=== PATIENT | female | born 1935 | race Caucasian/White ===

== ENCOUNTER 2016-10-24 10:15 | Inpatient (IN) | payer MEDICARE, BC ==
[2016-10-24] MEDS: Lactated Ringers 1,000 ML IV SCH ×2 (09:22→15:40)
[~2016-10-24 10:15] MED LIST: Ketorolac 30 MG/ML SDV ONE; Lidocaine 2% 5 ML SDV ONE; Midazolam 1 MG/ML 2 ML SDV ONE; Neostigmine Methylsulfate 1 MG/ML 5 ML Syringe ONE; Ondansetron 4 MG/2 ML SDV ONE; Propofol 200 MG/20 ML SDV ONE; Rocuronium 10 MG/ML 10 ML Syringe ONE; ePHEDrine 50 MG/ML SDV ONE; fentaNYL 250 MCG/5 ML SDV ONE
--- NOTE | 2016-10-24 10:20 | PCM.PREANE ---
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 (s/p surgery to mandible t, tongue and neck with radiation) Respiratory: Reports: no symptoms Cardiovascular: Reports: no symptoms (abnormal EKG; s/p lexiscan with 68%ef), blood pressure problem (treated) GI: Reports: no symptoms (GERD) Other: Reports: thyroid problems (hypothyroid - treated) - PHYSICAL ASSESSMENT O2 Sat by Pulse Oximetry: 98 RR: 16 Vital Signs: Last Vital Signs Temp 98.8 F 10/24/16 09:00 Pulse 70 10/24/16 09:00 Resp 16 10/24/16 09:00 BP 140/61 10/24/16 09:00 Pulse Ox 98 10/24/16 09:00 Height: 5 ft 3 in Weight: 126 lb ASA Class: 3 Mental Status: alert & oriented x3 Airway Class: Mallampati = 3 Dentition: Reports: edentulous Thyro-Mental Finger Breadths: 3 (stiff hard neck tissues) Mouth Opening Finger Breadths: 2 (metal in left mandible, limited mandible) ROM/Head Extension: limited/partial Respiratory Status: lungs clear to auscultation bilaterally Cardiovascular Status: regular rate & rhythm, no murmur - ALLERGIES Allergies/Adverse Reactions: Allergies Allergy/AdvReac Type Severity Reaction Status Date / Time No Known Allergies Allergy Verified 01/27/15 20:30 - BLOOD Blood Available: Yes Product(s) Available: PRBC - ANESTHESIA PLAN Preop Beta Lisset: Yes Beta Lisset: Metoprolol Anesthesia Type Planned: spinal (may consider LMA PRN; plan to avoid intubation if GERD hx permits) - ACKNOWLEDGEMENTS Pt an appropriate candidate for the planned anesthesia: Yes Alternatives and risks of anesthesia discussed w pt/guardian: Yes Pt/Guardian understands and agree with anesthesia plan: Yes PreAnesthesia Questionnaire Other HEENT History: wears glasses, no teeth Cardiovascular History: Reports: Hypertension Gastrointestinal History: Reports: GERD 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 OB/BYN History: tubal ligation Musculoskeletal History: Reports: Osteoarthritis, Osteoporosis Other Musculoskeletal History: degnerative disc disease Endocrine/Metabolic History: Reports: Hypothyroidism 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 - Past Surgical History HEENT Surgical History: Reports: Cataract surgery Other HEENT Surgeries/Procedures: 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, GI Surgical History: Reports: Other (see below) Other GI Surgeries/Procedures: G tube insertion 8 yrs ago (tube feedings twice daily) Female Surgical History: Reports: Breast biopsy, Tubal ligation Other Female Surgeries/Procedures: breast lumpectomy for ductal carcinoma in situ - SUBSTANCE USE Smoking Status *Q: Former Smoker Tobacco Use Within Last Twelve Months: No Recreational Drug Use History: No - HOME MEDS Home Medications: Home Meds Diclofenac Sodium [Voltaren] 1 applic TOP ASDIRECTED PRN 01/27/15 [History] Levothyroxine 75 mcg PO QAM 01/27/15 [History] Metoprolol Tartrate [Lopressor] 0.5 tab PO BID 01/27/15 [History] Zolpidem [Ambien] 5 mg PO BEDTIME PRN 01/27/15 [History] Denosumab [Prolia] 1 injection IM ASDIRECTED 10/19/16 [History] Hydrocodone/Acetaminophen [Hydrocodon-Acetamin 7.5-325/15] 5 - 10 ml PO ASDIRECTED PRN 10/19/16 [History] Lidocaine/Prilocaine [Lidocaine-Prilocaine Cream] 1 applic TOP ASDIRECTED PRN [History] - CURRENT (IN HOUSE) MEDS Current Meds: Current Medications Lactated Ringer's (Ringers, Lactated) 1,000 mls @ 100 mls/hr IV ASDIRECTED HARRY Last Admin: 10/24/16 09:22 Dose: 100 mls/hr Discontinued Medications Ephedrine Sulfate (Ephedrine Sulfate) Confirm Administered Dose 50 mg .ROUTE .STK-MED ONE Stop: 10/24/16 08:51 Ephedrine Sulfate (Ephedrine Sulfate) Confirm Administered Dose 50 mg .ROUTE .STK-MED ONE Stop: 10/24/16 09:12 Fentanyl (Sublimaze) Confirm Administered Dose 250 mcg .ROUTE .STK-MED ONE Stop: 10/24/16 08:51 Glycopyrrolate (Robinul) Confirm Administered Dose 1 mg .ROUTE .STK-MED ONE Stop: 10/24/16 08:51 Cefazolin Sodium 2,000 mg/ (Sodium Chloride) 100 mls @ 100 mls/hr IV ONETIME ONE Stop: 10/23/16 18:47 Ketorolac Tromethamine (Toradol) Confirm Administered Dose 30 mg .ROUTE .STK- MED ONE Stop: 10/24/16 08:28 Lidocaine (Xylocaine-Mpf 2%) Confirm Administered Dose 10 ml .ROUTE .STK-MED ONE Stop: 10/24/16 08:50 Midazolam HCl (Versed 1 Mg/Ml) Confirm Administered Dose 2 mg .ROUTE .STK-MED ONE Stop: 10/24/16 08:51 Neostigmine Methylsulfate (Neostigmine) Confirm Administered Dose 5 mg .ROUTE .STK-MED ONE Stop: 10/24/16 08:51 Ondansetron HCl (Zofran) Confirm Administered Dose 4 mg .ROUTE .STK-MED ONE Stop: 10/24/16 08:51 Propofol (Diprivan 20 Ml) Confirm Administered Dose 400 mg .ROUTE .STK-MED ONE Stop: 10/24/16 08:51 Rocuronium [place] (Zemuron) Confirm Administered Dose 100 mg .ROUTE .STK-MED ONE Stop: 10/24/16 08:51 Tranexamic Acid (Cyklokapron) Confirm Administered Dose 2,000 mg .ROUTE .STK- MED ONE Stop: 10/23/16 14:50
[2016-10-24] MEDS ORDERED: fentaNYL 100 MCG/2 ML SDV ONE (10:27)
[2016-10-24] MEDS ORDERED: Dermabond Prineo 1 Tube TOP ONE (10:30)
[2016-10-24] MEDS ORDERED: fentaNYL 100 MCG/2 ML SDV IVPUSH PRN (11:20)
--- NOTE | 2016-10-24 12:32 | PCM.OPNOTE ---
- General Post-Op/Procedure Note Date of Surgery/Procedure: 10/24/16 Operative Procedure(s): left anterior total hip arthroplasty Findings: severe OA Pre Op Diagnosis: left hip osteoarthritis Post-Op Diagnosis: same Anesthesia Technique: Spinal Primary Surgeon: Rebel [place] Rope Laying Machine Operator: Yolanda Mcknight Pathology: femoral head EBL in mLs: 250 Complications: none Condition: Good
[2016-10-24] MEDS ORDERED: Ondansetron 4 MG/2 ML SDV IV PRN (12:35)
[2016-10-24] MEDS ORDERED: Bisacodyl 10 MG Supp RECTAL PRN (12:36)
[2016-10-24] MEDS ORDERED: diphenhydrAMINE 25 MG Cap PO PRN (12:36)
[2016-10-24] MEDS ORDERED: Aluminum Hydroxide/Magnesium Hydroxide/Simethicone Susp 30 ML Cup PO PRN (12:36)
[2016-10-24] MEDS ORDERED: Acetaminophen/HYDROcodone 108-2.5 MG/5 ML Soln 15 ML UD Cup PO PRN (12:37)
--- NOTE | 2016-10-24 13:22 | PCM.POSTAN ---
POST ANESTHESIA ASSESSMENT - MENTAL STATUS Mental Status: alert, oriented - RESPIRATORY Respiratory Status: respiratory rate WNL, airway patent, O2 saturation stable - CARDIOVASCULAR CV Status: pulse rate WNL, blood pressure stable - GASTROINTESTINAL GI Status: no symptoms - PAIN Pain Score: 0 - POST OP HYDRATION Hydration Status: adequate & stable
[2016-10-24 15:48] LABS: CHLORIDE,CL 101 mmol/L (98-110); SODIUM,NA 134 mmol/L (136-146)
--- NOTE | 2016-10-24 15:54 | CR ---
EXAMINATION: Left hip HISTORY: Arthroplasty COMPARISON: 07/03/2016 TECHNIQUE: 3 operative control films provided FINDINGS/IMPRESSION: Operative control films demonstrate placement of a left total hip hardware in g ood position and alignment. Overlying operative soft tissue changes are noted.
[2016-10-24] MEDS: Morphine 10 MG/ML Syringe IVPUSH PRN ×2 (16:30→20:16)
[2016-10-24] MEDS: Ketorolac 15 MG/ML SDV IVPUSH PRN ×2 (17:56→23:46)
[2016-10-24] MEDS: ceFAZolin 1 GM in Premix Bag 1 BAG IV SCH (18:20)
--- NOTE | 2016-10-24 19:06 | PCM.SN ---
- Free Text/Narrative Note: [id number]
[2016-10-24] MEDS: Metoprolol Tartrate 25 MG Tab PO SCH (21:13)
[2016-10-24] MEDS: Docusate Sodium 100 MG Cap PO SCH (21:16)
--- NOTE | 2016-10-24 23:52 | OR ---
SURGEON: Rebel Argueta MD DATE OF PROCEDURE: 10/24/2016 WASTE HAND: Yolanda Mcknight PA-C. PREOPERATIVE DIAGNOSIS: Left hip osteoarthritis. POSTOPERATIVE DIAGNOSIS: Left hip osteoarthritis. OPERATION PERFORMED: Left anterior total hip arthroplasty. ANESTHESIA: Spinal with sedation. COMPLICATIONS: None. ESTIMATED BLOOD LOSS: 250 mL. SPECIMENS: Femoral head. COMPLICATIONS: None. IMPLANTS: Senthil Continuum trabecular metal shell with cluster holes, 56 mm outer diameter, one 6.5 x 30 mm length bone screw. Vivacit-E neutral liner 36 mm inner diameter M/L taper, cementless hip stem extended offset, reduced neck length size 11 BIOLOX delta ceramic femoral head 36 millimeter diameter, zero neck length. INDICATIONS: The patient is an 81-year-old female with severe arthritis. She has failed conservative management and wished to undergo total hip replacement. She understands the risks, benefits, complications of the procedure including, but not limited to infection, neurovascular injury, continued pain, DVT, PE, stroke, VA, , leg-length discrepancy, fracture dislocation and she wished to proceed. ANAHY Mcknight was instrumental in the case with manipulating the leg, retracting as well as in closing. OPERATION: The patient was seen in preop area. Operative extremity was marked with the patient. She was transferred to the operating room where spinal anesthetic was given. She was placed supine on the Schaffer table and the legs were placed in the leg bars with a narrow perineal post. Left hip was prepped and draped in sterile fashion using alcohol followed by ChloraPrep. She received preop antibiotics of Ancef and she received 2 g of TXA, and hip was prepped and draped in sterile fashion. Ioban covering placed over the hip. A formal time-out was taken, identifying the correct procedure and extremity. A 10 cm incision starting just lateral to the ASIS, going obliquely down the femur was made. Dissection was carried down to subcutaneous tissues. Hemostasis was obtained. The fascia overlying the TFL was opened. The interval between the TFL and sartorius and deep between the abductors and rectus was opened. Deep Isaac retractor was placed. The anterior vessels were coagulated and the vastus lateralis fascia was opened. The capsule was then held and tagged with two #2 FiberWire. The neck was then cut from the saddle region to about 1 cm above the lesser trochanter. The head was removed. Anterior and posterior retractors were placed in the acetabulum. Inferior capsule was released. The remnants of the labrum were removed as well as the pulvinar and the iliopsoas tendon was released. Sequential broaching from a size 47 to 55 mm was done. This had excellent fit and fill and after planing the bed to make sure the pelvis was level, a Continuum trabecular metal shell with cluster holes were placed with the screw holes straight superiorly at 45 degrees of abduction and 10 15 degrees of anteversion. This had excellent press fit. Once straight superior broken screw was placed and neutral liner was placed after irrigating the hip. Attention was then paid to the femur. A femoral hook was placed. The leg was externally rotated, abducted and extended. The medial capsule was released. The superior capsule, obturator internus and piriformis were released taking care to preserve the obturator externus. Central canal finder was utilized and then the hip was sequentially broached following the wilton version from size 4 up to size 11. This had excellent fit. It was then trialed and reduced with extended offset reduced neck length showing good fill in the hip with a 0 head. Printed overlay technique showed equal leg lengths and offset created on the opposite side. The hip was then dislocated. The final stem was impacted into place following the wilton version size 11 extended offset reduced neck length in M/L taper and then the final BIOLOX ceramic femoral head 36 mm with zero neck length was impacted. The hip was then reduced and final fluoroscopic films confirmed equal leg lengths and offset. The wound was then thoroughly irrigated. Two tag sutures were tied together. The fascia closed with #1 Vicryl, subcutaneous tissues closed with the 2-0 STRATAFIX and the skin was closed with running 4-0 Monocryl and Dermabond tape. Aquacel dressing was placed. The patient was transferred to recovery room in stable condition. Sponge and needle counts were correct at the end of the case. There were no complications. PLAN: The patient will follow up postop rehab protocol taking aspirin for DVT prophylaxis. CANDE PIÑA /[id number]
--- NOTE | 2016-10-25 01:29 | CONS ---
DATE OF CONSULTATION: DATE OF : 1935 PRIMARY CARE PHYSICIAN: None PCP REASON FOR CONSULTATION: Medical management of patient. HISTORY OF PRESENT ILLNESS: The patient is an 81-year-old female, who presented to the hospital to have elective surgery of the left hip due to osteoarthritis. 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 She is status post surgery. She had a surgery few years ago. Today, patient had surgery of left hip replacement. PAST MEDICAL HISTORY: Patient has hyperlipidemia, hypothyroidism. She has history of hypertension and GERD, osteoarthritis, osteoporosis, degenerative disk disease, cancer of jaw and ductal carcinoma in situ of the breast and is status post lumpectomy. PAST SURGICAL HISTORY: She has esophageal dilation q. 2 months and she is able to tolerate liquids and soft food p.o. She had lumpectomy of the breast. She had the surgery of left mandibular and left parotid glands. Also, patient had tubal ligation and J-tube insertion 8 years ago, breast biopsy and breast lumpectomy for ductal carcinoma in situ. She also had cataract surgery. ALLERGIES: Patient does not have any known drug allergies. SOCIAL HISTORY: She smoked for 20 years, 1 pack and a half for day and quit 8 years ago. Alcohol use none. Drug use none. FAMILY HISTORY: Her mom had coronary artery disease, father had throat cancer, sister had lung cancer. REVIEW OF SYSTEMS: Patient states she has numbness of the tongue and oral mucosa status post surgery of the mandibular tongue and act with radiation. A 12-point review of systems is negative except as in history of present illness. PHYSICAL EXAMINATION: VITAL SIGNS: On admission, temperature 98.8, pulse 70, respiratory rate 16, blood pressure 140/61, pulse oximetry 98%. HEENT: Head is atraumatic and normocephalic. Patient has no dentition. She has atrophic oral mucosa. NECK: Supple. No thyromegaly. No lymphadenopathy. HEART: S1, S2. Regular rhythm and rate. No murmur. LUNGS: Clear to auscultation bilaterally. ABDOMEN: Soft, nontender, positive bowel sounds. Patient has dressing on the left hip. EXTREMITIES: Lower extremities, no edema. LABORATORY DATA: At admission WBC 10.06, hemoglobin 11.7, hematocrit 35.2, platelets 231. Sodium 134, potassium 4.3, chloride 101, CO2 25, BUN 8, creatinine 0.7. Glucose 109, calcium 0.7. Total bilirubin 0.6, AST 34, ALT 17, alkaline phosphatase 44, total protein 6.5, albumin 3.6, globulin 2.9. ASSESSMENT: Left hip osteoarthritis status post left hip replacement. Followup orthopedic consult. For DVT prophylaxis, patient will have aspirin 325 p.o. b.i.d. as per Orthopedic recommendation. Toradol 50 mg IV push q. 6 hours as per Orthopedic. For hypothyroidism, patient will be continued on levothyroxine 75 mcg p.o. q.a.m. for hypertension, patient will continue with metoprolol 12.5 mg p.o. b.i.d. for prophylaxis for infection s/p sx post surgery with Ancef 1 q. 8 hours as per Orthopedic recommendation. Pain management as per Orthopedics. Feeding, patient will be continued on her home feeding which is Jevity as per reconciliation. ANTJOANN / WANG /[id number] MTDAlexis
[2016-10-25] MEDS: ceFAZolin 1 GM in Premix Bag 1 BAG IV SCH (01:45)
[2016-10-25] MEDS: Lactated Ringers 1,000 ML IV SCH (01:48)
[2016-10-25] MEDS: Morphine 10 MG/ML Syringe IVPUSH PRN ×2 (06:04→09:16)
[2016-10-25] MEDS ORDERED: Sodium Chloride 0.9% 10 ML Syringe FLUSH PRN (07:12)
[2016-10-25] MEDS ORDERED: Sodium Chloride 0.9% 2.5 ML Syringe FLUSH PRN (07:12)
--- NOTE | 2016-10-25 07:14 | PCM.SN ---
- Free Text/Narrative Note: S: some pain. has not gotten out of bed. some numbness lateral to incision. no other issues. no nausea. tolerating PO O: afebrile, vital signs stable dressing clean/dry/intact with no erythema. no swelling distally. some numbness lateral to incision. normal sensation and motor distal with palpable pedal pulse. hgb 10.0 A/P: POD #1 Left ROGELIO with post-op acute on chronic blood loss anemia - full weight bearing, PT - aspirin and SCDs for DVT prophylaxis - home when up and moving well - CHRIS and alice michelle
[2016-10-25] MEDS: Levothyroxine 75 MCG Tab PO SCH (08:57)
[2016-10-25] MEDS: Docusate Sodium 100 MG Cap PO SCH ×2 (08:57→21:00)
[2016-10-25] MEDS ORDERED: Aspirin 325 MG Tab PO SCH (09:00)
[2016-10-25] MEDS: Metoprolol Tartrate 25 MG Tab PO SCH ×2 (09:09→21:01)
--- NOTE | 2016-10-25 11:22 | PCM48HPAN ---
Post Anesthesia Note - EVALUATION WITHIN 48HRS OF ANESTHETIC Vital Signs in Normal Range: Yes Patient Participated in Evaluation: Yes Respiratory Function Stable: Yes Airway Patent: Yes Cardiovascular Function Stable: Yes Hydration Status Stable: Yes Pain Control Satisfactory: Yes Nausea and Vomiting Control Satisfactory: Yes Mental Status Recovered: Yes - COMMENTS/OBSERVATIONS Free Text/Narrative:: Did well overnite with some pain, but tolerated.
--- NOTE | 2016-10-25 11:24 | CR ---
EXAMINATION: Portable chest radiograph. HISTORY: Aspiration. FINDINGS: The trachea is midline. The cardiomediastinal silhouette is within normal limits. Mildly increased i nterstitial prominence within the lung bases. No pleural effusion or pneumothorax. Osseous structures appear unremarkable. IMPRESSION: Increased interstitial prominence most notable within the lung bases. This could represent chronic a spiration changes.
[2016-10-25] MEDS ORDERED: methylPREDNISolone Sodium Succinate 125 MG/2 ML SDV ONE (13:23)
[2016-10-25] MEDS ORDERED: Midazolam 1 MG/ML 2 ML SDV ONE (13:34)
[2016-10-25] MEDS ORDERED: fentaNYL 100 MCG/2 ML SDV ONE ×4 (13:41→22:48)
[2016-10-25 14:10] LABS: CHLORIDE,CL 100 mmol/L (98-110); SODIUM,NA 132 mmol/L (136-146)
--- NOTE | 2016-10-25 14:18 | PCM.SN ---
- Free Text/Narrative Note: Responded to rapid response room 220. On arrival pt is pale with agonal respirations SpO2 40's. Code Blue called. BVM respirations were started with O2 at 15LPM. SpO2 increased slowly to 94% over 8 minutes. Decision to intubate was made with suspicion of aspiration. Aggressive oral suctioning was performed and yellow tube feeding like content cleared. RSI was performed with the following: Etomidate 20mg IV Rocuronium 20mg IV Succinylcholine 80mg IV DL with xavier 3 yields grade I view. 7.0 cuffed ETT was placed with ease. + BBS (Coarse throughout all lung styles), + EtCO2. CXR and ABG ordered and pending. Pt transferred to ICU. HR 160's, SpO2 - 100% on FiO2 100%, RR 12 - controlled. BP 160/86 Versed 2mg IV and Fentanyl 50mcg IV x 2 were given for continued sedation. Initial vent setting; PC 30insp max, P - 5, PS - 10, FiO2 100% TV are currently around 400mL on these settings. Very coarse lung sounds noted through all lung styles. Endotrachael suctioning was also performed immediately after intubation and copious yellow/tube feeding like material was cleared from the airway.
--- NOTE | 2016-10-25 14:18 | CR ---
EXAMINATION: Portable chest radiograph. HISTORY: Intubation. FINDINGS: The trachea is midline. There is an endotracheal tube noted in good position. There are increasing c oarse infiltrates within the mid to lower lung bases bilaterally consistent with aspiration. No pleu ral effusion or pneumothorax. Osseous structures appear unremarkable. IMPRESSION: 1. Endotracheal tube in good position. 2. Increasing bilateral mid to lower lung coarse infiltrates, consistent with history of aspiration.
[2016-10-25] MEDS: Piperacillin/Tazobactam 4.5 GM in Sodium Chloride 0.9% 100 ML IV SCH ×2 (14:29→20:15)
--- NOTE | 2016-10-25 14:41 | PCM.PN ---
- General Info Date of Service: 10/25/16 Admission Dx/Problem (Free Text): hip replacement Subjective Update: Patient had some regurgitation in am about 10 cc , yellow fluid was vomited . She had mild wheezing , feeding was stopped and cxr was ordered , patient was found later to have O2 sat 50 % and rapid response was called . She was not reponding , Bp was 95/53, T 99.5F . Patient was ambu-bagged and her O2 sat increased above 90. She was intubated for the protection of the airways . Was placed on Ventilator FI O2 100 percent sat 95% and was bloused 1l and 500 cc Ns. Her vs were stable , but later her Bp start dropping and patient was placed on 2 pressors. ( norepinephrine and vasopressine ). Patient repeat cxr showed b/l pneumonia. Trop neg . During intubation patient was suctioned large amount yellow gastric content. - Review of Systems Systems Review Comment:: Unable to do review of systems - Patient Data Vitals - most recent: Last Vital Signs Temp 98.9 F 10/25/16 08:00 Pulse 86 10/25/16 09:09 Resp 17 10/25/16 08:00 BP 118/50 L 10/25/16 09:09 Pulse Ox 95 10/25/16 08:00 Weight - most recent: 132 lb 4.438 oz I&O - last 24 hours: Intake & Output 10/24/16 10/25/16 10/25/16 22:59 06:59 14:59 Intake Total 877 1360 267 Output Total 100 400 Balance 777 960 267 Lab Results last 24 hrs: Laboratory Results - last 24 hr 10/24/16 10/24/16 10/25/16 Range/Units 15:14 15:14 05:02 WBC 10.06 (4.0-11.0) K/uL RBC 3.74 L (4.30-5.90) M/uL Hgb 11.7 L 10.0 L (12.0-16.0) g/dL Hct 35.2 L 29.7 L (36.0-46.0) % MCV 94.1 (80.0-98.0) fL MCH 31.3 (27.0-32.0) pg MCHC 33.2 (31.0-37.0) g/dL RDW Std Deviation 45.5 (28.0-62.0) fl RDW Coeff of Latanya 13 (11.0-15.0) % Plt Count 231 (150-400) K/uL MPV 9.80 (7.40-12.00) fL Neut % (Auto) (48.0-80.0) % Lymph % (Auto) (16.0-40.0) % Hughes % (Auto) (0.0-15.0) % Eos % (Auto) (0.0-7.0) % Baso % (Auto) (0.0-1.5) % Neut # (1.4-5.7) K/uL Lymph # (0.6-2.4) K/uL Hughes # (0.0-0.8) K/uL Eos # (0.0-0.7) K/uL Baso # (0.0-0.1) K/uL Nucleated RBC % 0.0 /100WBC Nucleated RBCs # 0 K/uL ABG pH (7.35-7.45) ABG pCO2 (35-45) mmHG ABG pO2 (75-100) mmHG ABG HCO3 (22-26) mEq/L ABG Total CO2 ABG Base Excess (-2.0-2.0) Lactate (0.20-2.00) mmol/L Sodium 134 L (136-146) mmol/L Potassium 4.3 (3.5-5.1) mmol/L Chloride 101 (98-110) mmol/L Carbon Dioxide 25 (21-31) mmol/L BUN 8 (6.0-23.0) mg/dL Creatinine 0.7 (0.6-1.5) mg/dL Est Cr Clr Drug Dosing 53.02 mL/min Estimated GFR (MDRD) > 60.0 ml/min Glucose 109 (60-110) mg/dL POC Glucose (60-110) mg/dL Calcium 8.7 L (8.8-10.8) mg/dL Total Bilirubin 0.6 (0.1-1.5) mg/dL AST 34 (5-40) IU/L ALT 17 (8-54) IU/L Alkaline Phosphatase 44 (40-150) Troponin I (0.0-0.29) NG/ML Total Protein 6.5 (6.0-8.0) g/dL Albumin 3.6 (3.4-4.8) g/dL Globulin 2.9 (2.0-3.5) g/dL Albumin/Globulin Ratio 1.2 L (1.3-2.8) 10/25/16 10/25/16 10/25/16 Range/Units 13:20 13:34 13:36 WBC (4.0-11.0) K/uL RBC (4.30-5.90) M/uL Hgb (12.0-16.0) g/dL Hct (36.0-46.0) % MCV (80.0-98.0) fL MCH (27.0-32.0) pg MCHC (31.0-37.0) g/dL RDW Std Deviation (28.0-62.0) fl RDW Coeff of Latanya (11.0-15.0) % Plt Count (150-400) K/uL MPV (7.40-12.00) fL Neut % (Auto) (48.0-80.0) % Lymph % (Auto) (16.0-40.0) % Hughes % (Auto) (0.0-15.0) % Eos % (Auto) (0.0-7.0) % Baso % (Auto) (0.0-1.5) % Neut # (1.4-5.7) K/uL Lymph # (0.6-2.4) K/uL Hughes # (0.0-0.8) K/uL Eos # (0.0-0.7) K/uL Baso # (0.0-0.1) K/uL Nucleated RBC % /100WBC Nucleated RBCs # K/uL ABG pH (7.35-7.45) ABG pCO2 (35-45) mmHG ABG pO2 (75-100) mmHG ABG HCO3 (22-26) mEq/L ABG Total CO2 ABG Base Excess (-2.0-2.0) Lactate (0.20-2.00) mmol/L Sodium 132 L (136-146) mmol/L Potassium 5.0 (3.5-5.1) mmol/L Chloride 100 (98-110) mmol/L Carbon Dioxide 21 (21-31) mmol/L BUN 14 (6.0-23.0) mg/dL Creatinine 0.7 (0.6-1.5) mg/dL Est Cr Clr Drug Dosing 53.02 mL/min Estimated GFR (MDRD) > 60.0 ml/min Glucose 218 H (60-110) mg/dL POC Glucose 242 H (60-110) mg/dL Calcium 8.2 L (8.8-10.8) mg/dL Total Bilirubin 0.8 (0.1-1.5) mg/dL AST 55 H (5-40) IU/L ALT 16 (8-54) IU/L Alkaline Phosphatase 46 (40-150) Troponin I < 0.10 (0.0-0.29) NG/ML Total Protein 5.8 L (6.0-8.0) g/dL Albumin 3.4 (3.4-4.8) g/dL Globulin 2.4 (2.0-3.5) g/dL Albumin/Globulin Ratio 1.4 (1.3-2.8) 10/25/16 10/25/16 10/25/16 Range/Units 13:36 13:36 13:48 WBC 4.15 (4.0-11.0) K/uL RBC 4.18 L (4.30-5.90) M/uL Hgb 13.1 (12.0-16.0) g/dL Hct 39.6 (36.0-46.0) % MCV 94.7 (80.0-98.0) fL MCH 31.3 (27.0-32.0) pg MCHC 33.1 (31.0-37.0) g/dL RDW Std Deviation 46.5 (28.0-62.0) fl RDW Coeff of Latanya 14 (11.0-15.0) % Plt Count 279 (150-400) K/uL MPV 10.50 (7.40-12.00) fL Neut % (Auto) 64.3 (48.0-80.0) % Lymph % (Auto) 31.6 (16.0-40.0) % Hughes % (Auto) 3.4 (0.0-15.0) % Eos % (Auto) 0.2 (0.0-7.0) % Baso % (Auto) 0.5 (0.0-1.5) % Neut # 2.7 (1.4-5.7) K/uL Lymph # 1.3 (0.6-2.4) K/uL Hughes # 0.1 (0.0-0.8) K/uL Eos # 0.0 (0.0-0.7) K/uL Baso # 0.0 (0.0-0.1) K/uL Nucleated RBC % 0.0 /100WBC Nucleated RBCs # 0 K/uL ABG pH 7.184 L* (7.35-7.45) ABG pCO2 47 H (35-45) mmHG ABG pO2 150 H (75-100) mmHG ABG HCO3 18 L (22-26) mEq/L ABG Total CO2 16.8 ABG Base Excess -10.0 L (-2.0-2.0) Lactate 5.6 H (0.20-2.00) mmol/L Sodium (136-146) mmol/L Potassium (3.5-5.1) mmol/L Chloride (98-110) mmol/L Carbon Dioxide (21-31) mmol/L BUN (6.0-23.0) mg/dL Creatinine (0.6-1.5) mg/dL Est Cr Clr Drug Dosing mL/min Estimated GFR (MDRD) ml/min Glucose (60-110) mg/dL POC Glucose (60-110) mg/dL Calcium (8.8-10.8) mg/dL Total Bilirubin (0.1-1.5) mg/dL AST (5-40) IU/L ALT (8-54) IU/L Alkaline Phosphatase (40-150) Troponin I (0.0-0.29) NG/ML Total Protein (6.0-8.0) g/dL Albumin (3.4-4.8) g/dL Globulin (2.0-3.5) g/dL Albumin/Globulin Ratio (1.3-2.8) Med Orders - Current: Current Medications Acetaminophen/Hydrocodone Bitart (Acetaminophen/Hydrocodone 108-2.5 Mg/5 Ml) 5 - 10 ml PO ASDIRECTED PRN PRN Reason: Pain Al Hydroxide/Mg Hydroxide (Mag-Al Plus) 30 ml PO Q4H PRN PRN Reason: indigestion Aspirin (Aspirin) 325 mg PO BID [facility] Last Admin: 10/25/16 08:57 Dose: 325 mg Bisacodyl (Dulcolax) 10 mg RECTAL DAILY PRN PRN Reason: Constipation Diphenhydramine HCl (Benadryl) 25 - 50 mg PO Q6H PRN PRN Reason: Itching Docusate Sodium (Colace) 100 mg PO BID [facility] Last Admin: 10/25/16 08:57 Dose: 100 mg Piperacillin Sod/Tazobactam (Sod 4.5 gm/ Sodium Chloride) 100 mls @ 100 mls/hr IV Q6H [facility] Last Admin: 10/25/16 14:29 Dose: 100 mls/hr Propofol (Diprivan 50 Ml) 50 mls @ 1.8 mls/hr IV TITRATE HARRY; 5 MCG/KG/MIN PRN Reason: Protocol Last Admin: 10/25/16 14:29 Dose: 5 mcg/kg/min, 1.8 mls/hr Insulin Aspart (Novolog) 0 unit SUBCUT ACBED [facility] PRN Reason: Protocol Levothyroxine Sodium (Levothyroxine) 75 mcg PO QAM [facility] Last Admin: 10/25/16 08:57 Dose: 75 mcg Methylprednisolone Sodium Succinate (Solu-Medrol) 60 mg IVPUSH Q6H [facility] Metoprolol Tartrate (Lopressor) 12.5 mg PO BID [facility] Last Admin: 10/25/16 09:09 Dose: 12.5 mg Morphine Sulfate (Morphine) 1 - 3 mg IVPUSH Q3H PRN PRN Reason: Pain Last Admin: 10/25/16 09:16 Dose: 2 mg Ondansetron HCl (Zofran) 4 mg IV Q6HR PRN PRN Reason: NAUSEA/VOMITING Last Admin: 10/25/16 10:35 Dose: 4 mg Sodium Chloride (Saline Flush) 10 ml FLUSH ASDIRECTED PRN PRN Reason: Keep Vein Open Sodium Chloride (Saline Flush) 2.5 ml FLUSH ASDIRECTED PRN PRN Reason: Keep Vein Open Discontinued Medications Ephedrine Sulfate (Ephedrine Sulfate) Confirm Administered Dose 50 mg .ROUTE .STK-MED ONE Stop: 10/24/16 08:51 Ephedrine Sulfate (Ephedrine Sulfate) Confirm Administered Dose 50 mg .ROUTE .STK-MED ONE Stop: 10/24/16 09:12 Fentanyl (Sublimaze) Confirm Administered Dose 250 mcg .ROUTE .STK-MED ONE Stop: 10/24/16 08:51 Fentanyl (Sublimaze) Confirm Administered Dose 100 mcg .ROUTE .STK-MED ONE Stop: 10/24/16 10:28 Fentanyl (Sublimaze) 50 mcg IVPUSH Q5M PRN PRN Reason: Pain (severe 7-10) Stop: 10/25/16 11:20 Fentanyl (Sublimaze) Confirm Administered Dose 100 mcg .ROUTE .STK-MED ONE Stop: 10/25/16 13:42 Glycopyrrolate (Robinul) Confirm Administered Dose 1 mg .ROUTE .STK-MED ONE Stop: 10/24/16 08:51 Lactated Ringer's (Ringers, Lactated) 1,000 mls @ 100 mls/hr IV ASDIRECTED HARRY Last Admin: 10/25/16 01:48 Dose: 100 mls/hr Cefazolin Sodium 2,000 mg/ (Sodium Chloride) 100 mls @ 100 mls/hr IV ONETIME ONE Stop: 10/23/16 18:47 Last Admin: 10/24/16 14:01 Dose: Not Given Cefazolin Sodium/Dextrose 1 gm (/ Premix) 50 mls @ 100 mls/hr IV Q8H HARRY Stop: 10/25/16 02:59 Last Admin: 10/25/16 01:45 Dose: 100 mls/hr Propofol (Diprivan 50 Ml) 50 mls @ 1.8 mls/hr IV TITRATE HARRY; 5 MCG/KG/MIN PRN Reason: Protocol Ketorolac Tromethamine (Toradol) Confirm Administered Dose 30 mg .ROUTE .STK- MED ONE Stop: 10/24/16 08:28 Ketorolac Tromethamine (Toradol) 15 mg IVPUSH Q6H PRN PRN Reason: Pain Stop: 10/25/16 09:00 Last Admin: 10/24/16 23:46 Dose: 15 mg Lidocaine (Xylocaine-Mpf 2%) Confirm Administered Dose 10 ml .ROUTE .STK-MED ONE Stop: 10/24/16 08:50 Methylprednisolone Sodium Succinate (Solu-Medrol) Confirm Administered Dose 125 mg .ROUTE .STK-MED ONE Stop: 10/25/16 13:24 Midazolam HCl (Versed 1 Mg/Ml) Confirm Administered Dose 2 mg .ROUTE .STK-MED ONE Stop: 10/24/16 08:51 Midazolam HCl (Versed 1 Mg/Ml) Confirm Administered Dose 2 mg .ROUTE .STK-MED ONE Stop: 10/25/16 13:35 Neostigmine Methylsulfate (Neostigmine) Confirm Administered Dose 5 mg .ROUTE .STK-MED ONE Stop: 10/24/16 08:51 Octyl Cyanoacrylate (Dermabond Prineo) 1 applic TOP ONETIME ONE Stop: 10/24/16 10:31 Last Admin: 10/24/16 14:01 Dose: Not Given Ondansetron HCl (Zofran) Confirm Administered Dose 4 mg .ROUTE .STK-MED ONE Stop: 10/24/16 08:51 Propofol (Diprivan 20 Ml) Confirm Administered Dose 400 mg .ROUTE .STK-MED ONE Stop: 10/24/16 08:51 Rocuronium [place] (Zemuron) Confirm Administered Dose 100 mg .ROUTE .STK-MED ONE Stop: 10/24/16 08:51 Tranexamic Acid (Cyklokapron) Confirm Administered Dose 2,000 mg .ROUTE .STK- MED ONE Stop: 10/23/16 14:50 - Exam Quality Assessment: supplemental oxygen General: alert, oriented HEENT: Pupils equal, Pupils reactive Neck: supple, no JVD Lungs: Crackles, Wheezing, Other (intubated) Extremities: no edema Skin: warm, dry Neurological: no new focal deficit - Problem List Review Problem List Initiated/Reviewed/Updated: Yes - My Orders Last 24 Hours: My Active Orders 10/25/16 10:29 Communication Order [RC] ROUTINE 10/25/16 14:29 CULTURE BLOOD [BC] Routine 10/25/16 14:30 Insulin Aspart [NovoLOG] See Protocol SUBCUT ACBED A/p Acute respiratory failure secondary to aspiration pneumonia secondary probable to slow transit sec to pain meds - patient intubated , unstable to be transferred to [facility] as per e ICU attending Dr. Ovalles. , troponins as q 6h Intermittent oropharingeal suctioning , as per E icu vent management as per e icu Septic shock -bc , iv zosyn 4.5 grams q 6h and vancomycin as per pharmacy , iv pressors: levophed and vasopressin , solumedrol 40 mg iv q 8 h as per e icu DVT prof : aspirin 300 mg intrarectal q12 h Gi prof : protonix drip
[2016-10-25] MEDS ORDERED: fentaNYL 100 MCG/2 ML SDV IVPUSH PRN (15:06)
[2016-10-25] MEDS ORDERED: Midazolam 50 MG in Sodium Chloride 0.9% 40 ML IV SCH (15:15)
[2016-10-25] MEDS: Insulin Aspart 100 Units/ML 3 ML Pen SUBCUT SCH ×3 (16:25→20:48)
[2016-10-25] MEDS ORDERED: Sodium Chloride 0.9% 500 ML IV SCH (16:30)
[2016-10-25] MEDS: Norepinephrine 4 MG in Dextrose 5% in Water 246 ML IV SCH ×2 (16:33)
[2016-10-25] MEDS ORDERED: Aspirin 325 MG Tab GTUBE SCH (18:02)
[2016-10-25] MEDS ORDERED: Sodium Chloride 0.45% 1,000 ML IV SCH (18:15)
--- NOTE | 2016-10-25 18:22 | PCM.SN ---
- Free Text/Narrative Note: Consulted for central access on patient in ICU on vasopressors. Consent obtained. sterile prep. Full barrier precautions. R IJV entered under direct ultrasound visualization. Seldinger technique used to place wire and then IJ catheter. secured at 15 cm. all 3 ports draw back easily and flush easily, Secured with suture and sterile dressing. No complications. CXR to be ordered and reviewed by Dr Griffith.
[2016-10-25] MEDS ORDERED: Lidocaine 2% 5 ML SDV ONE (18:28)
[2016-10-25] MEDS ORDERED: Diltiazem 25 MG/5 ML SDV IVPUSH ONE (18:33)
[2016-10-25] MEDS ORDERED: Diltiazem 25 MG/5 ML SDV ONE (18:35)
[2016-10-25] MEDS: methylPREDNISolone Sodium Succinate 40 MG/1 ML SDV IVPUSH SCH (18:59)
[2016-10-25] MEDS ORDERED: methylPREDNISolone Sodium Succinate 40 MG/1 ML SDV IVPUSH SCH (19:30)
[2016-10-25] MEDS: Pantoprazole 80 MG in Sodium Chloride 0.9% 100 ML IV SCH (20:36)
[2016-10-25] MEDS ORDERED: Magnesium Sulfate/Water 4 GM in Premix Bag 1 BAG IV ONE (21:00)
[2016-10-25] MEDS ORDERED: fentaNYL 100 MCG/2 ML SDV IVPUSH ONE (21:29)
[2016-10-25] MEDS: Aspirin 300 MG Supp RECTAL SCH (22:00)
[2016-10-25] MEDS ORDERED: fentaNYL 2,500 MCG in Sodium Chloride 0.9% 200 ML IV SCH ×2 (22:15→23:00)
[2016-10-26] MEDS: Norepinephrine 4 MG in Dextrose 5% in Water 246 ML IV SCH ×4 (01:13→15:16)
[2016-10-26] MEDS: methylPREDNISolone Sodium Succinate 40 MG/1 ML SDV IVPUSH SCH ×3 (01:18→16:46)
[2016-10-26] MEDS: Insulin Aspart 100 Units/ML 3 ML Pen SUBCUT SCH ×3 (01:19→13:27)
[2016-10-26] MEDS: Piperacillin/Tazobactam 4.5 GM in Sodium Chloride 0.9% 100 ML IV SCH ×3 (01:23→14:11)
[2016-10-26] MEDS: Pantoprazole 80 MG in Sodium Chloride 0.9% 100 ML IV SCH ×2 (05:18→15:20)
[2016-10-26 05:39] LABS: CHLORIDE,CL 107 mmol/L (98-110); SODIUM,NA 135 mmol/L (136-146)
--- NOTE | 2016-10-26 07:09 | PCM.SN ---
- Free Text/Narrative Note: S: she was doing well yesterday ambulating and then she aspirated and respiratory arrest occurred. She was coded, was intubated and transferred to ICU and has been managed by hospitalist and eICU. Currently she is on pressors 100% oxygen on the ventilator and is too unstable to be transferred. Discussed with the nurse she had some movement over night mainly on the left arm the daughter says that both feet were moving. Currently she is on fentanyl for sedation. O: t36.3, BP 123/50, HR 84, RR 19, 97% on 100%, ventilator right hip dressing clean/dry/intact, minimal swelling in thigh hgb 11.3 A/P: POD #2 right ROGELIO, respiratory arrest in ICU - Unstable on pressors - outcome guarded with respiratory arrest requiring pressors - transfer if stable enough - management per ICU
[2016-10-26] MEDS: Metoprolol Tartrate 25 MG Tab PO SCH (08:18)
[2016-10-26] MEDS: Docusate Sodium 100 MG Cap PO SCH (08:22)
[2016-10-26] MEDS: Levothyroxine 75 MCG Tab PO SCH (08:27)
[2016-10-26] MEDS ORDERED: Sodium Chloride 0.45% 1,000 ML IV SCH (09:15)
[2016-10-26] MEDS: Aspirin 300 MG Supp RECTAL SCH (09:46)
--- NOTE | 2016-10-26 10:26 | CR ---
EXAMINATION: Portable chest radiograph. HISTORY: ARDS. FINDINGS: The trachea is midline. The cardiomediastinal silhouette is stable. Coarse pulmonary infiltrates are again noted bilaterally, slightly improved. There is an endotracheal tube noted in good position. E ndogastric tube is noted with tip in the stomach. There is a right-sided central line in good positi on. No pneumothorax. Osseous structures appear unremarkable. IMPRESSION: 1. Mildly improving bilateral coarse pulmonary infiltrates. 2. Right-sided central line, endotracheal tube, an endogastric tube in good position.
[2016-10-26] MEDS ORDERED: Midazolam 1 MG/ML 2 ML SDV ONE (10:28)
--- NOTE | 2016-10-26 10:51 | PCM.SN ---
- Free Text/Narrative Note: Notified by RT that ETT is requiring frequent cuff re-inflation and he believes that there is a leak. Talked to Dr Wheeler and [facility] doctor regarding tube exchange and all are in agreement at this time. Family was at the bedside and agree to proceed with exchange. Versed 2mg IV Etomidate 10mg IV Rocuronium 30mg IV After satisfactory relaxing was achieved 14Fr Cook airway catheter was placed down the existing endotrachael tube, cuff was deflated and removed over the airway catheter. New 7.0 cuffed ETT was placed over the airway catheter to a depth of 22cm a the lips. Cuff was re-inflated, +BBS, +EtCO2. CXR to confirm placement is pending at this time. The patient tolerated the procedure well. VSS throughout.
--- NOTE | 2016-10-26 11:20 | CR ---
EXAMINATION: Two-view chest (PA and Lateral views). HISTORY: Intubation. FINDINGS: The trachea is midline. There is an endotracheal tube noted approximately 2 cm above the juan. The right-sided central line and endogastric tubes are stable in good position. Persistent coarse pulmo nary infiltrates noted. Osseous structures appear unremarkable. IMPRESSION: Endotracheal tube approximately 2 cm above the juan.
--- NOTE | 2016-10-26 12:20 | CT ---
EXAMINATION: Non contrast CT head. Coronal and sagittal reformats. HISTORY: Rule out stroke FINDINGS: There is a large evolving acute to subacute left MCA distribution infarct. No significant mass effec t or midline shift. There is no evidence of hemorrhage. No abnormal intracranial calcifications are detected. No evidence of substantial vascular calcifica tions. Paranasal sinuses and mastoid air cells are well aerated without substantial findings. Pituitary fossa appears unremarkable. Calvarium is intact. No evidence of skull fracture. IMPRESSION: 1. Evolving acute to subacute large left MCA distribution infarct.
--- NOTE | 2016-10-26 15:46 | CR ---
EXAM DATE: 10/24/16 PATIENT'S AGE: 81 Patient: LORI BYERS Facility: [place], [place] Site . Site : [id number] Study: XRay Chest [id number] 9:01:39 PM Ordering Physician: Ellie West Final Report: INDICATION: central line placement TECHNIQUE: Chest 1 view COMPARISON: 10/25/2016 1:46 p.m. FINDINGS: Cardiovascular and mediastinum: The heart silhouette is normal in size and morphology. The mediastinum is normal in appearance. The endotracheal (ET) tube has its tip approximately 4.9 cm from the juan. The NG tube tip is not included but is positioned beyond the GE junction. Right IJ line is in place with the tip in the SVC. Lungs and pleural spaces: Moderate perihilar airspace consolidation is noted with slight interval decrease compared to prior examination. No pleural effusion is identified. No pneumothorax is identified. Bones and soft tissues: No significant findings. IMPRESSION: 1. No pneumothorax is seen after central line placement. Dictated by Riaz Alan MD @ 10/25/2016 9:18:17 PM Dictated by: Riaz Alan MD @ 10/25/2016 21:18:24 (Electronic Signature) Report Signed by Proxy and Original Signed Document filed in the Medical Record. MTDD
[2016-10-26 16:38] VITALS: BP 94/38
--- NOTE | 2016-10-26 19:53 | PCM.SN ---
- Free Text/Narrative Note: [id number]
--- NOTE | 2016-10-26 22:50 | DISCH ---
DATE OF DISCHARGE: 10/26/2016 PRIMARY CARE PHYSICIAN: None PCP HOSPITAL COURSE: The patient was admitted to the hospital on 10/24/2016 to have elective hip replacement and on the next day, the patient had aspiration of the gastric contents. On the next day, she had small amount of vomiting about 10 mL after she was fed through her PEG tube. She was fed about 200 mL Jevity. She had mild wheezing and the patient was evaluated. She was sitting at the bedside. Chest x-ray was ordered, which showed some increased interstitial marking at the base of the lung consistent possibly with chronic aspiration. The patient was found around noon in the room unresponsive. She was cyanotic. Her blood pressure systolic was in the 90s and her oxygen saturation was around 50%. Rapid Response was called and the patient was Ambu bagged. Her oxygen came back to above 90s immediately and the patient was intubated. During her intubation, she had yellow fluid suctioned from her throat, which was gastric content. Chest x-ray post intubation showed ARDS. The patient was on vent, PEEP of 12, FiO2 of 100%, and saturating in the 90s. eICU stated the patient is not stable to be transferred to [place] where she was accepted by the ICU doctor. After intubation, she developed hypotension and she needed to be on 2 pressors, Levophed 20 and vasopressin. She was bolused 500 mL fluids, and then her blood pressure improved. Later on, she was observed she was not moving her right arm and her right leg. She was also not stable to go for a CT. The patient was continued on aspirin rectally at [address] of the head today showed that she has a large infarct in the territory of left MCA without edema or without midline shift. Today, the patient's ventilator settings were changed to tidal volume of 320, PEEP 12, and FiO2 was decreased to 90, and the patient was saturating at 96%. During the day, the patient required only 4 mcg of Levophed to maintain blood pressure at 120, but later, the patient's Levophed just before to be transferred levophed was increased to 10 and vasopressin was added. Her lactate increased to 2.7 and her troponin was negative. Serial troponin after the code were negative. The patient was transferred today to [place] because she needs a higher level of care and she may need long-term vent management and she was accepted there by Dr. Ricki England , automotive sales associate. After the code, the patient was started on antibiotics,Zosyn and vancomycin, and she was also given Solu-Medrol 40 mg IV q.8 hours as per eICU recommendations. Discussed with the patient's family myself and also critical care doctor discussed with them . They wanted the patient to be transferred. They did not want comfort measures for the patient. PHYSICAL EXAMINATION: VITAL SIGNS: At discharge, the patient had heart rate of 80, blood pressure 94/38 with a mean arterial pressure of 56, respiratory rate is 14, and oxygen saturation 95% on FiO2 of 90 with PEEP of 12. HEENT: Head is atraumatic and normocephalic. The patient is intubated. Also, the patient today, had leaking of ET tube and she had ET tube replaced. LUNGS: Coarse breath sounds bilaterally. HEART: S1 and S2, regular rate and rhythm. No murmur. ABDOMEN: Soft and nontender. PEG present. GT-tube present. EXTREMITIES: No edema. Does not spontaneously move rt arm or leg DISCHARGE LABORATORY DATA: WBC 13, hemoglobin 11.3, hematocrit 32.5, and platelet count 206. Sodium 135, potassium 4.2, chloride 107, CO2 of 18, BUN 17, creatinine 0.8, glucose 150, calcium 7.3, phosphorus 3.9, and magnesium 2.3. Total bilirubin 0.7, AST 49, and ALT 14. Troponin 0.21. CRP 29.78. BNP 1540. Total protein 4.4, albumin 2.6, and globulin 1.8. DISCHARGE DIAGNOSES: 1. Acute respiratory distress syndrome. 2. 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 Congestive heart failure. 4. Septic shock. 5. Hip replacement, left. PLAN: We will transfer the patient to [facility] ICU in [place] and the patient will be taken there with a fixed-wing airplane. CONDITION AT DISCHARGE: Poor. PROGNOSIS: Poor. The patient will be continued on pressors, on IV antibiotics, Solu-Medrol and will be transported with vent with PEEP of 12. eICU attending discussed with flight crew. For DVT prophylaxis, the patient on aspirin rectally 300 b.i.d. ANTOPEBeck / MODL /[id number] FLORIN
== END 2016-10-26 16:07 | DRG 469 ==
LOC: MW.MS 11:45 → MW.ICU 10-25 14:17
PROVIDERS: ADMIT Orthopaedic Surgery; ATTEND Orthopaedic Surgery
PROC: 0SRB03A Replacement of Left Hip Joint with Ceramic Synthetic Substitute, Uncemented, Open Approach (ICD-10-PCS; principal; 2016-10-24)
PROC: 0BH17EZ Insertion of Endotracheal Airway into Trachea, Via Natural or Artificial Opening (ICD-10-PCS; 2016-10-25)
PROC: 5A1945Z Respiratory Ventilation, 24-96 Consecutive Hours (ICD-10-PCS; 2016-10-25)
PROC: 02HV33Z Insertion of Infusion Device into Superior Vena Cava, Percutaneous Approach (ICD-10-PCS; 2016-10-25)
PROC: 0B21XEZ Change Endotracheal Airway in Trachea, External Approach (ICD-10-PCS; 2016-10-26)
DX: M16.12 Unilateral primary osteoarthritis, left hip (principal); J69.0 Pneumonitis due to inhalation of food and vomit; J96.00 Acute respiratory failure, unspecified whether with hypoxia or hypercapnia; A41.9 Sepsis, unspecified organism; R65.21 Severe sepsis with septic shock; I63.8 Other cerebral infarction; I63.412 Cerebral infarction due to embolism of left middle cerebral artery; J80 Acute respiratory distress syndrome; J95.812 Postprocedural air leak; I69.351 Hemiplegia and hemiparesis following cerebral infarction affecting right dominant side; I10 Essential (primary) hypertension; E03.9 Hypothyroidism, unspecified; Z87.891 Personal history of nicotine dependence; Z85.89 Personal history of malignant neoplasm of other organs and systems; M81.0 Age-related osteoporosis without current pathological fracture; E87.5 Hyperkalemia; Z85.3 Personal history of malignant neoplasm of breast; Z79.82 Long term (current) use of aspirin; Z93.1 Gastrostomy status; D50.0 Iron deficiency anemia secondary to blood loss (chronic)
CPT/HCPCS: 01214; 31500; 36415; 36556; 36600; 51703; 70450; 70450-26; 71010; 71010-26; 76000; 76000-26; 80053; 82803; 82962; 83605; 83735; 83880; 84100; 84145; 84484; 85014; 85018; 85025; 85027; 86140; 86850; 86900; 86901; 87040; 88304; 88311; 94002; 94003; 97110-GP; 97161-GP; 97802; A9270-GY; C1713; C1776; C9113; J0690; J1885; J2250; J2270; J2405; J2543; J2704; J2710; J2920; J2930; J3010; J3370; J3475; J3490; J7030; J7050; J7060; J7120